=== PATIENT | male | born 1965 | race African-American/Black ===

== ENCOUNTER 2016-08-18 15:10 | Observation (INO) | payer BC ==
[~2016-08-18] VITALS: Ht 180.3 cm; Wt 85.0 kg
[~2016-08-18 15:10] MED LIST: LORT7.5T3 PO; PRED20 PO; Z.0.NO CURRENT MEDS
[2016-08-18 15:12] VITALS: BP 203/112; PULSE 82; RESP 20; TEMP 97.3; O2SAT 100
[2016-08-18 15:23] VITALS: BP 196/119; PULSE 81; RESP 18; TEMP 98.2; O2SAT 100
[2016-08-18] MEDS ORDERED: LABETALOL HCL 100 MG/20 ML VIAL IV PUSH ONE (16:00)
--- NOTE | 2016-08-18 16:10 | PD ---
HPI Chief Complaint: Syncope/Near-Syncope Time Seen by Provider: 15:23 Travel History International Travel<30 days: No Contact w/Intl Traveler<30days: No Traveled to known affect area: No History of Present Illness HPI Is a 50-year-old man who presents to the emergency department complaining of feeling poorly for the past week or so, with decreased energy, sluggishness. He started getting more weak and fatigued and having near syncopal episodes. During this time his had persistent pain in the left side of his neck and the pain radiates into the left arm. Describes left arm having cold and numb feelings off and on. He's also clamminess in both hands. He had a little bit of slight chest pressure couple days ago, but nothing more recently. Review systems also positive for some intermittent blurry vision. History Past Medical History Medical History: Denies Significant Hx Tetanus Vaccination: Unknown Past Surgical History Surgical History: No Previous Surgery Social History Alcohol Use: No Tobacco Use: No Allergies-Medications (Allergen,Severity, Reaction): Coded Allergies: No Known Allergies (Verified , 08/18/16) Reported Meds & Prescriptions Reported Meds & Active Scripts Active No Active Prescriptions or Reported Medications Review of Systems Except as stated in HPI: all other systems reviewed are Neg Physical Exam Narrative GENERAL: 50-year-old man, generally well-appearing, nontoxic. SKIN: Focused skin assessment warm/dry. HEAD: Atraumatic. Normocephalic. EYES: Pupils equal and round. No scleral icterus. No injection or drainage. ENT: No nasal bleeding or discharge. Mucous membranes pink and moist. NECK: Trachea midline. No meningismus. CARDIOVASCULAR: Regular rate and rhythm. No murmur appreciated. Maybe a little bit of pulse asymmetry in the left arm, difficult to tell for sure. RESPIRATORY: No accessory muscle use. Clear to auscultation. Breath sounds equal bilaterally. GASTROINTESTINAL: Abdomen soft, non-tender, nondistended. Hepatic and splenic margins not palpable. MUSCULOSKELETAL: No obvious deformities. No clubbing. No cyanosis. No edema. NEUROLOGICAL: Awake and alert. No obvious cranial nerve deficits. Motor grossly within normal limits. Normal speech. PSYCHIATRIC: Appropriate mood and affect; insight and judgment normal. Data Data Last Documented VS Vital Signs Date Time Temp Pulse Resp B/P Pulse Ox O2 Delivery O2 Flow Rate FiO2 08/18/16 15:23 98.2 81 18 196/119 100 08/18/16 15:12 Room Air Orders Electrocardiogram (08/18/16 ) Complete Blood Count With Diff (08/18/16 15:59) Comprehensive Metabolic Panel (08/18/16 15:59) Troponin I (08/18/16 15:59) Chest, Single Ap (08/18/16 ) Urinalysis - C+S If Indicated (08/18/16 15:59) Cta Thor Abd Aorta W Iv C W3d (08/18/16 ) Labetalol Inj (Trandate Inj) (08/18/16 16:00) Morphine Inj (Morphine Inj) (08/18/16 18:15) Acetaminophen (Tylenol) (08/18/16 18:15) Iohexol 350 Inj (Omnipaque 350 Inj) (08/18/16 18:27) Amlodipine (Norvasc) (08/18/16 19:00) Labs Laboratory Tests Test 08/18/16 08/18/16 16:10 17:00 White Blood Count 5.8 TH/MM3 Red Blood Count 5.21 MIL/MM3 Hemoglobin 14.5 GM/DL Hematocrit 45.7 % Mean Corpuscular Volume 87.7 FL Mean Corpuscular Hemoglobin 27.9 PG Mean Corpuscular Hemoglobin 31.8 % Concent Red Cell Distribution Width 13.6 % Platelet Count 176 TH/MM3 Mean Platelet Volume 9.6 FL Neutrophils (%) (Auto) 46.6 % Lymphocytes (%) (Auto) 40.1 % Monocytes (%) (Auto) 10.6 % Eosinophils (%) (Auto) 2.1 % Basophils (%) (Auto) 0.6 % Neutrophils # (Auto) 2.7 TH/MM3 Lymphocytes # (Auto) 2.3 TH/MM3 Monocytes # (Auto) 0.6 TH/MM3 Eosinophils # (Auto) 0.1 TH/MM3 Basophils # (Auto) 0.0 TH/MM3 CBC Comment DIFF FINAL Differential Comment Sodium Level 140 MEQ/L Potassium Level 3.5 MEQ/L Chloride Level 104 MEQ/L Carbon Dioxide Level 26.9 MEQ/L Anion Gap 9 MEQ/L Blood Urea Nitrogen 13 MG/DL Creatinine 1.37 MG/DL Estimat Glomerular Filtration 66 ML/MIN Rate Random Glucose 118 MG/DL Calcium Level 8.9 MG/DL Total Bilirubin 0.3 MG/DL Aspartate Amino Transf 15 U/L (AST/SGOT) Alanine Aminotransferase 27 U/L (ALT/SGPT) Alkaline Phosphatase 69 U/L Troponin I LESS THAN 0.02 NG/ML Total Protein 8.1 GM/DL Albumin 4.1 GM/DL Urine Color YELLOW Urine Turbidity CLEAR Urine pH 6.0 Urine Specific [place] 1.025 Urine Protein NEG mg/dL Urine Glucose (UA) NEG mg/dL Urine Ketones NEG mg/dL Urine Occult Blood NEG Urine Nitrite NEG Urine Bilirubin NEG Urine Urobilinogen LESS THAN 2.0 MG/DL Urine Leukocyte Esterase NEG Urine RBC 1 /hpf Urine WBC 1 /hpf Urine Squamous Epithelial <1 /hpf Cells Urine Mucus FEW /lpf Microscopic Urinalysis Comment CULT NOT INDICATED MDM Medical Decision Making Medical Screen Exam Complete: Yes Emergency Medical Condition: Yes Interpretation(s) Normal sinus rhythm at a rate of 77, anteroseptal Q waves, could suggest previous septal [place], no definite evidence of acute ischemia. LABS: CBC unremarkable. Remarkable for mildly elevated creatinine. Troponin negative. Coags unremarkable. 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 Otherwise a thoracic abdominal pelvic vasculature is all normal in caliber without aneurysmal disease or dissection. 1.8 cm nonspecific nodule in the right lobe of the thyroid. Consider ultrasound of the thyroid is not outpatient. Chest x-ray: Negative. Differential Diagnosis Dissection, ACS, renal failure, infection, bleed, other Narrative Course Medical decision making INITIAL: 50-year-old male who presents complaining of feeling generally poorly decreased energy, dizziness, concerning for left-sided anterior pain, pain in the left arm with described intermittent cold and numb feelings, and some blurry vision. Blood pressure is markedly elevated. This could be concerning for dissection. Gen. Symptoms could also be related to more generalized process such as renal failure or infection. I don't see any meningismus of a concerning for meningitis. We'll check labs, chest x-ray, EKG. We'll get CTA rule out dissection, check labs for kidney function, flexion, reassess. We'll give labetalol for blood pressure control initially. FINAL: 50-year-old man, unusual symptoms including headache, left arm pain numbness, left shoulder pain, and some intermittent chest pain. Etiology is unclear. Concern for an anginal equivalent versus symptomatic hypertension/ hypertensive urgency. Blood pressures controlled now. We'll start on by mouth amlodipine. We'll plan on admission for serial cardiac enzymes, blood pressure monitoring, possible provocative testing. Diagnosis Primary Impression: Chest pain Additional Impression: Elevated blood pressure reading Scripts No Active Prescriptions or Reported Meds Damon Mckeon MD Aug 18, 2016 16:10
[2016-08-18 16:24] LABS: AUTOMATED NEUTROPHIL # 2.7 TH/MM3 (1.8-7.7); BASOPHIL % 0.6 % (0.0-2.0); EOSINOPHIL # 0.1 TH/MM3 (0-0.4); EOSINOPHIL % 2.1 % (0.0-4.0); HEMATOCRIT 45.7 % (39.0-51.0); HEMO FLAGS DIFF FINAL; LYMPH % 40.1 % (9.0-44.0); LYMPHOCYTE # 2.3 TH/MM3 (1.0-4.8); MEAN CELL VOLUME 87.7 FL (80.0-100.0); MEAN CORPUSCULAR HEMOGLOBIN 27.9 PG (27.0-34.0); MEAN CORPUSCULAR HGB CONC 31.8 % (32.0-36.0); MONO % 10.6 % (0.0-8.0); NEUT % 46.6 % (16.0-70.0); PLATELET COUNT 176 TH/MM3 (150-450); RED BLOOD COUNT 5.21 MIL/MM3 (4.50-5.90); RED CELL DISTRIBUTION WIDTH 13.6 % (11.6-17.2); WHITE BLOOD COUNT 5.8 TH/MM3 (4.0-11.0)
--- NOTE | 2016-08-18 16:40 | RADRPT ---
EXAM DATE/TIME: 08/18/2016 16:10 [facility] COMPARISON: No previous studies available for comparison. INDICATIONS : Chest pain MEDICAL HISTORY : None. SURGICAL HISTORY : None. ENCOUNTER: Initial ACUITY: 1 week PAIN SCORE: 5/10 LOCATION: Bilateral chest FINDINGS: The lungs are clear without infiltrate, nodule, or mass. There is no appreciable pleural effusion fo r technique. Heart and mediastinum are unremarkable. IMPRESSION: No acute cardiopulmonary disease. Muriel Rascon MD on August 18, 2016 at 16:38 Board Certified Radiologist. This report was verified electronically.
[2016-08-18 16:43] LABS: ALKALINE PHOSPHATASE 69 U/L (45-117); TOTAL BILIRUBIN ADULT 0.3 MG/DL (0.2-1.0)
[2016-08-18 16:53] LABS: ALT (GPT) 27 U/L (12-78); ANION GAP 9 MEQ/L (5-15); AST (GOT) 15 U/L (15-37); BICARBONATE 26.9 MEQ/L (21.0-32.0); BLOOD UREA NITROGEN 13 MG/DL (7-18); CHLORIDE 104 MEQ/L (98-107); GLOMERULAR FILTRATION RATE 66 ML/MIN (>89); POTASSIUM 3.5 MEQ/L (3.5-5.1); SODIUM (NA) 140 MEQ/L (136-145)
[2016-08-18 17:26] LABS: BLOOD, URINE NEG (NEG); COMMENT (UR) CULT NOT INDICATED; CULTURE IF INDICATED CULT NOT INDICATED; GLUCOSE,URINE NEG (NEG); KETONE, URINE NEG (NEG); MUCUS URINE FEW /lpf (OCC); NITRITE,URINE NEG (NEG); SQUAMOUS EPITHELIAL CELL URINE <1 /hpf (0-5); URINE COLOR YELLOW (YELLW/STRAW)
--- NOTE | 2016-08-18 18:05 | EKG ---
Date Performed: 08/18/2016 Time Performed: 15:36:39 PTAGE: 50 years EKG: Sinus rhythm SEPTAL MYOCARDIAL INFARCTION ABNORMAL ECG NO SIGNIFICANT CHANGE FROM PRIOR ELECTROCARDIOGRAM. PREVIOUS TRACING : 08/18/2016 15.35 DOCTOR: Erik Travis Interpretating Date/Time 08/20/2016 07:26:27
[2016-08-18] MEDS ORDERED: ACETAMINOPHEN 325 MG TAB PO ONE (18:15)
[2016-08-18] MEDS ORDERED: MORPHINE SULFATE 4 MG/ML INJ IV PUSH ONE (18:15)
--- NOTE | 2016-08-18 18:21 | RADRPT ---
EXAM DATE/TIME: 08/18/2016 17:15 [facility] COMPARISON: No previous studies available for comparison. INDICATIONS : Left side jaw pain and left side chest pain for one week IV CONTRAST: 99 cc Omnipaque 350 (iohexol) IV RADIATION DOSE: 7.90 CTDIvol (mGy) MEDICAL HISTORY : Hypertension. SURGICAL HISTORY : None. ENCOUNTER: Initial ACUITY: 1 week PAIN SCALE: 8/10 LOCATION: Left chest TECHNIQUE: Volumetric scanning was performed using a multi-row detector CT scanner. The data was post processed with a variety of visualization algorithms including full volume maximum intensity projection, multi -planar sliding thin slab reformation, curved planar reformation, and surface rendering techniques. Using automated exposure control and adjustment of the mA and/or kV according to patient size, radiat ion dose was kept as low as reasonably achievable to obtain optimal diagnostic quality images. FINDINGS: LUNGS: There is no consolidation or pneumothorax. No concerning pulmonary nodule is visualized. No pleural fluid is present. MEDIASTINUM: No abnormally enlarged lymph nodes by CT criteria. No axillary or hilar abnormalities are identified. Isolated, 1.8 cm low density nodule in the posterior midpole of the right lobe of the thyroid ABDOMEN: The liver and spleen are free of focal defects. The gallbladder and pancreas demonstrate no abnormali ty. The adrenal glands are normal. The kidneys demonstrate no evidence of solid renal mass or hydrone phrosis. No free fluid or abdominal masses are identified. No para-aortic adenopathy is seen. PELVIS: No evidence of free fluid or pelvic mass. No abnormally enlarged inguinal or retroperitoneal lymph no santiago are present. The bladder is unremarkable. THORACIC AORTA: The thoracic aortic root is normal with normal branching of the great vessels. There is no evidence of aneurysm or dissection. ABDOMINAL AORTA: The aorta is normal in caliber without aneurysm or dissection. The renal arteries are patent bilater ally. The proximal celiac and superior mesenteric arteries are patent and normal in diameter. Also noted is an anatomic variant with a replaced hepatic artery emanating from the SMA. PELVIC VESSELS: The internal iliac and external iliac vessels are patent without aneurysm or stenosis. CONCLUSION: 1. Anatomic variant with the hepatic artery emanating as the first branch of the SMA. 2. Otherwise, the thoracic, abdominal and pelvic vasculature is all normal in caliber without aneurys mal disease or dissection. 3. 1.8 cm nonspecific nodule in the right lobe of the thyroid. It is a clinical concern, ultrasound o f the thyroid on an outpatient basis could be obtained for further characterization. Tadeo Esquivel MD on August 18, 2016 at 18:15 Board Certified Radiologist. This report was verified electronically.
[2016-08-18] MEDS ORDERED: IOHEXOL 350 MG/ML 10 ML VIAL (for RAD DIAG) IV ONE (18:27)
[2016-08-18] MEDS ORDERED: amLODIPine BESYLATE 5 MG TAB PO ONE (19:00)
[2016-08-18] MEDS ORDERED: ENOXAPARIN SODIUM 40 MG/0.4 ML SYRINGE SQ SCH (20:45)
[2016-08-18] MEDS ORDERED: SODIUM CHLORIDE 0.9% FLUSH 10 ML FLUSH IV FLUSH PRN (20:45)
[2016-08-18] MEDS ORDERED: NALOXONE HCL 0.4 MG/ML AMP IV PRN (20:45)
[2016-08-18] MEDS ORDERED: ONDANSETRON HCL 4 MG/2 ML VIAL IVP PRN (20:45)
[2016-08-18] MEDS ORDERED: ACETAMINOPHEN 325 MG TAB PO PRN (20:45)
[2016-08-18 21:06] VITALS: BP 163/104; PULSE 71; RESP 18; O2SAT 99
[2016-08-18] MEDS: ENALAPRILAT 1.25 MG/ML VIAL IV PRN (21:16)
[2016-08-18] MEDS: SODIUM CHLORIDE 0.9% FLUSH 10 ML FLUSH IV FLUSH SCH (21:16)
[2016-08-18] MEDS: SODIUM CHLOR 0.9% 1000 ML INJ 1,000 ML IV SCH (21:17)
[2016-08-18] MEDS: NITROGLYCERIN 2% OINT 1 GM PACKET TOPICAL SCH (21:17)
[2016-08-18 22:27] VITALS: BP 162/101; PULSE 67; RESP 16; O2SAT 100
[2016-08-19] VITALS (11 sets, daily range): BP systolic 133–173; BP diastolic 87–109; PULSE 72–83; RESP 14–18; TEMP 98.2–98.7; O2SAT 98–100
[2016-08-19] MEDS: NITROGLYCERIN 2% OINT 1 GM PACKET TOPICAL SCH ×2 (00:28→05:50)
[2016-08-19 03:23] LABS: AUTOMATED NEUTROPHIL # 2.8 TH/MM3 (1.8-7.7); BASOPHIL % 0.4 % (0.0-2.0); EOSINOPHIL # 0.1 TH/MM3 (0-0.4); EOSINOPHIL % 2.2 % (0.0-4.0); HEMATOCRIT 40.8 % (39.0-51.0); HEMO FLAGS DIFF FINAL; LYMPH % 33.6 % (9.0-44.0); LYMPHOCYTE # 1.7 TH/MM3 (1.0-4.8); MEAN CELL VOLUME 86.6 FL (80.0-100.0); MEAN CORPUSCULAR HEMOGLOBIN 29.1 PG (27.0-34.0); MEAN CORPUSCULAR HGB CONC 33.5 % (32.0-36.0); MONO % 8.9 % (0.0-8.0); NEUT % 54.9 % (16.0-70.0); PLATELET COUNT 169 TH/MM3 (150-450); RED BLOOD COUNT 4.72 MIL/MM3 (4.50-5.90); RED CELL DISTRIBUTION WIDTH 13.4 % (11.6-17.2); WHITE BLOOD COUNT 5.1 TH/MM3 (4.0-11.0)
[2016-08-19 03:39] LABS: ANION GAP 5 MEQ/L (5-15); AST (GOT) 11 U/L (15-37); BICARBONATE 30.9 MEQ/L (21.0-32.0); BLOOD UREA NITROGEN 11 MG/DL (7-18); CHLORIDE 107 MEQ/L (98-107); GLOMERULAR FILTRATION RATE 71 ML/MIN (>89); POTASSIUM 3.3 MEQ/L (3.5-5.1); SODIUM (NA) 143 MEQ/L (136-145)
[2016-08-19 03:42] LABS: ALKALINE PHOSPHATASE 67 U/L (45-117); ALT (GPT) 23 U/L (12-78); TOTAL BILIRUBIN ADULT 0.1 MG/DL (0.2-1.0)
[2016-08-19] MEDS: SODIUM CHLOR 0.9% 1000 ML INJ 1,000 ML IV SCH (05:53)
--- NOTE | 2016-08-19 07:42 | EKG ---
Date Performed: 08/19/2016 Time Performed: 02:10:26 PTAGE: 50 years EKG: Sinus rhythm WITH FIRST DEGREE AV BLOCK SEPTAL MYOCARDIAL INFARCTION ABNORMAL ECG NO SIGNIFICANT CHANGE FROM PRIO R ELECTROCARDIOGRAM. PREVIOUS TRACING : 08/18/2016 15.36 DOCTOR: Erik Travis Interpretating Date/Time 08/19/2016 07:40:26
[2016-08-19] MEDS: POTASSIUM CHLORIDE 10 MEQ CONTROLLED RELEASE TAB PO SCH ×2 (09:00→10:50)
[2016-08-19] MEDS ORDERED: amLODIPine BESYLATE 5 MG TAB PO SCH (09:00)
[2016-08-19] MEDS: SODIUM CHLORIDE 0.9% FLUSH 10 ML FLUSH IV FLUSH SCH (09:00)
[2016-08-19] MEDS ORDERED: REGADENOSON INJ 0.4 MG/5 ML SYR ONE (09:28)
--- NOTE | 2016-08-19 10:45 | MH ---
cc: LUIZA LOPEZ MD DATE OF ADMISSION: 08/18/2016 DATE OF : 1965 CHIEF COMPLAINT Dizziness with near syncope and left-sided chest pain. No travel in the last 30 days. HISTORY OF PRESENT ILLNESS This is a pleasant 50-year-old black male who has been in his usual state of health up until the past couple of weeks. 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 He also notes some numbness and radiation into his left arm. The patient also complained of some left jaw and ear pressure. He denies any fever, no cough. No shortness of breath. He has not been sick or taken any antibiotics recently. He is positive for some intermittent blurry vision. The patient initiated symptoms at work; the work nurse took his blood pressure and noticed it to be extremely high and send him home from work. He has not been following with a routine PCP but had a visit this coming up week scheduled. The patient had some of the same symptoms approximately 4 years ago had some cardiac testing which was within normal range. She states he was given of blood pressure pills during that period of time but states the medicine making feel bad, so he did not take it. He has not been on any routine blood pressure medicines since that time medical history of previous chest pain with a negative exam previous hypertension, untreated. No previous surgeries. ALLERGIES No known. MEDICATIONS: No active medications. SOCIAL HISTORY The patient is , currently lives with his . He denies any alcohol or tobacco or illicit drug use. 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 REVIEW OF SYSTEMS 12-point review was done positives include left general left ear pressure left-sided chest pain with radiation into the left arm numbness and tingling some mild dizziness off and on other systems negative or unremarkable vital signs temperature is 98 for pulse 80, respirations 18, blood pressure 133/87, O2 sat 98 on room air. PHYSICAL EXAMINATION IN GENERAL: Well-nourished, well-developed black male looks to be his stated age alert and oriented, resting in the bed a good historian. SKIN: Skin is pink mucous membranes warm and dry. HEAD, EYES, EARS, NOSE, AND THROAT: Atraumatic, normocephalic. Pupils equal, reactive to light and accommodation. No scleral icterus. [place] moist mucous membranes. NECK: Neck is supple. CARDIOVASCULAR SYSTEM: S1-S2 distant heart sounds but no murmurs, rubs or gallops. No edema in his lower extremities. RESPIRATORY: Essentially clear anteriorly and posteriorly with no wheezes, rales or rhonchi. GASTROINTESTINAL: Abdomen soft, nontender, nondistended. Active bowel sounds in all four quads. MUSCULOSKELETAL: He moves his extremities with purpose. He has equal crew scheduler. No edema. NEUROLOGIC: He is alert, oriented x4 and good historian. Speech is clear psychiatric appropriate mood and affect. Insight and judgment normal. DIAGNOSTIC DATA White blood cell 5.1, RBC 4.72, hemoglobin 13.7, hematocrit 40.8, platelet count 169, elevated monocyte percentage auto 8.9. Chemistry 143, potassium 3.3, chloride 107, carbon dioxide 30.9, amnion gap 5, BUN 11, creatinine 1.29, GFR 71, random glucose 126. AST 11, ALT 23, alkaline phos 67. Troponins are negative x3 at less than 0.02, total protein 6.9, albumin 3.5. TSH is pending. Urine is yellow clear, pH is six, specific gravity 1.025, negative protein, glucose ketones, occult blood, nitrites and bilirubin negative leukocyte esterase. Culture is not indicated. DIAGNOSTIC DATA Chest x-ray and aortic CTA; anatomic variant with hepatic artery emanating as the first branch of the SMA, otherwise thoracic abdominal and pelvic vasculature are normal without aneurysm or dissection. A 1.8 cm nonspecific nodule in the right lobe of the thyroid. Follow up on an outpatient basis could be obtained for further characterization. ASSESSMENT/PLAN 1. Chest pain. Rule out myocardial infarction, hypertension uncontrolled. 2. New thyroid nodule seen on aortic CTA, intermittent blurry vision. 3. Hypokalemia. PLAN: Plan is to admit for observation. Vital signs will be q. four. Activity; bed rest. ECG cardiac monitoring. Heart healthy diet. Medications have been reconciled the. In the emergency room the patient was given 20 mg IV push of labetalol x1. This brought his pressure into the controlled range. The patient was also given p.o. Norvasc, DVT prophylaxis with ordered with Lovenox. Gentle hydration was also used. Currently the patient will have a p.r.n. Vasotec with parameters if his BP becomes uncontrolled cardiology has been consulted for their expert opinion and has seen the patient this morning myocardial perfusion stress test has been ordered currently the patient will be n.p.o. except for his medications until this test is completed. For the hypokalemia. Mild the patient was given p.o. potassium and we will recheck his labs in the morning for his further evaluation. The patient is full code, full aggressive care and we will follow. Thank you very much. DICTATED BY: CHRISTINE Yang MD [employer] Irving/ludin /8:52 AM /9:05 AM
--- NOTE | 2016-08-19 10:57 | MB ---
cc: BOBBY JOSUE MD DATE OF CONSULTATION 08/19/2016 REASON FOR CONSULTATION Chest pain HISTORY OF PRESENT ILLNESS The patient is a 50-year-old man who has a fairly unremarkable past medical history. He reports that over the last week or so, he has had some decreased energy. He reports to me that he has been having intermittent episodes of chest pain and neck pain that he insists is related to his blood pressure. He, however, does not have a blood pressure machine at home. The patient has not elicited any precipitating or relieving factors to the chest pain. He reports that the neck pain, when he was having it, was tender to touch however, it is not any longer. The patient reported some left chest pain and said that it was not really related to exertion, however on several occasions, he thought it may be. He is somewhat of a poor historian in this regard. He notes he was admitted to [facility] several years ago for the same thing and was not aware of any diagnosis subsequent. PAST MEDICAL HISTORY Significant for low back pain. ALLERGIES NO KNOWN DRUG ALLERGIES. OUTPATIENT MEDICATIONS None SOCIAL HISTORY The patient is and does not smoke. REVIEW OF SYSTEMS Except as mentioned in the HPI, all 12 systems are negative. PHYSICAL EXAMINATION Initial blood pressure was 197/119, current blood pressure is 136/87, respiratory rate 14, heart rate 80 and temperature of 98.4. GENERAL: He is a well-appearing man who is in no apparent distress. NECK: His neck is free from JVD. LUNGS: The lungs are bilaterally clear to auscultation. CARDIOVASCULAR: On examination, he has a normal S1 and S2. I do not appreciate any murmurs, rubs or gallops. ABDOMEN: The abdomen is soft. EXTREMITIES: The extremities are free from edema. EKG shows normal sinus rhythm with a borderline first-degree AV block. There is septal Q-waves with poor R-wave progression concerning for an anteroseptal SC age indeterminate. LAB VALUES Significant for serial troponins of less than 0.02/less than 0.02/less than 0.02. His initial creatinine was 1.37 and that is down to 1.29 today. IMPRESSIONS 1. Atypical chest pain - The patient does not really have any cardiac risk factors other than being a middle-aged male. His pain is quite atypical. His EKG, however does show some possible evidence for an old anteroseptal SC. In light of this, I am going to check a [place] nuclear stress. 2. Hypertension - The patient was fairly hypertensive on Arrival. At this point, they have placed him on amlodipine which does appear reasonable. 3. Fatigue - I am going to add a TSH. DISPOSITION It is reasonable for him to be discharged home if the study is nonischemic. Bobby Josue M.D. TESSA/DJL /7:59 AM /10:49 AM
--- NOTE | 2016-08-19 11:38 | RADRPT ---
EXAM DATE/TIME: 08/19/2016 09:08 [facility] COMPARISON: No previous studies available for comparison. INDICATIONS : Chest pressure radiating to left neck and arm for 1 day. Abnormal EKG. Angina. DOSE: 26.2 mCi Tc99m Myoview at stress. 8.1 mCi Tc99m Myoview at rest. 0.4 mg Lexiscan STRESS SYMPTOMS: Short of breath. EJECTION FRACTION: 67% MEDICAL HISTORY : Hypertension. Thyroid disease. Syncopal episode. SURGICAL HISTORY : None. ENCOUNTER: Initial ACUITY: 1 day PAIN SCALE: 2/10 LOCATION: Bilateral chest TECHNIQUE: The patient underwent pharmacologic stress with infusion of prescribed dose. Continuous ECG tracing was monitored during stress. Gated SPECT imaging was performed after stress and conventional SPECT i maging was performed at rest. The examination was performed on a SPECT/CT scanner, both attenuation and non-corrected datasets were reviewed. FINDINGS: DISTRIBUTION: The maximum perfused segment at stress is in the septal wall. PERFUSION STUDY: The pattern of perfusion at stress is within normal limits, with regional variations of perfusion wit hin 25%. The pattern of perfusion at stress and rest is unchanged. No evidence of redistribution. The summed stress score is zero. GATED STUDY: There is intact wall motion and thickening without hypokinetic or dyskinetic segments. CONCLUSION: 1. No evidence of stress-induced ischemia. 2. Intact wall motion was 67% ejection fraction. RISK CATEGORY: Low (<1% Annual Mortality Rate) Douglas Mace MD on August 19, 2016 at 11:35 Board Certified Radiologist. This report was verified electronically.
[2016-08-19] MEDS: ENALAPRILAT 1.25 MG/ML VIAL IV PRN (13:24)
[2016-08-19] MEDS ORDERED: NIFEdipine 60 MG SUSTAINED RELEASE TAB PO SCH (14:30)
--- NOTE | 2016-08-19 14:57 | HP.UPD ---
H&P Update Note This is a very pleasant 50-year-old male of Dr. Dr. Zavala. He came to the emergency department with left neck pain and left upper extremity pain. He was seen by chief innovation officer Dr. Mcdonald. His nuclear stress test was done and was negative. His blood pressure has been elevated. He has had elevated blood pressure of 1 number of years however he does not take any medications. He did try 1 time Procardia which did not suit him. He did take today amlodipine without any side effects. This controlled his blood pressure well. Also his creatinine was slightly elevated at 1.36. This improved with hydration. His blood sugar this morning was 136 however it was not a true fasting blood sugar. 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 He does not have any chest pain. He is now being discharged home in stable condition. He is to take amlodipine 10 mg daily and baby aspirin daily. His potassium was low at 3.3 and he was started on supplemental potassium. He started avoid excessive salt and limit his alcohol intake to a maximum of 1 alcoholic drink a day. He is recommended to see his primary physician in the next few days to try to get his blood pressure control and also to check his fasting blood sugar. He also needs a periodic evaluation of his creatinine. Cathie Kaur MD Aug 19, 2016 14:54
[2016-08-19] MEDS ORDERED: AMLO10TA2 PO (15:01)
[2016-08-19] MEDS ORDERED: POTA-243 PO (15:01)
[2016-08-19] MEDS ORDERED: ASPI81TA11 PO (15:01)
--- NOTE | 2016-08-19 15:01 | HHI.DS ---
Discharge Summary Admission Date Aug 18, 2016 at 19:46 Admitting Diagnosis Chest pain, hypertension CBC/BMP: 08/19/16 0259 08/19/16 0259 Significant Findings Laboratory Tests Test 08/18/16 08/18/16 08/18/16 08/19/16 16:10 17:00 21:35 02:59 Mean Corpuscular Hemoglobin 31.8 % Concent (32.0-36.0) Monocytes (%) (Auto) 10.6 % 8.9 % (0.0-8.0) (0.0-8.0) Creatinine 1.37 MG/DL (0.60-1.30) Estimat Glomerular Filtration 66 ML/MIN (>89) 71 ML/MIN (>89) Rate Random Glucose 118 MG/DL 126 MG/DL (74-106) (74-106) Troponin I LESS THAN 0.02 LESS THAN 0.02 LESS THAN 0.02 NG/ML NG/ML NG/ML (0.02-0.05) (0.02-0.05) (0.02-0.05) Urine Mucus FEW /lpf (OCC) Potassium Level 3.3 MEQ/L (3.5-5.1) Total Bilirubin 0.1 MG/DL (0.2-1.0) Aspartate Amino Transf 11 U/L (15-37) (AST/SGOT) Hospital Course This is a very pleasant 50-year-old male of Dr. Dr. Zavala. He came to the emergency department with left neck pain and left upper extremity pain. He was seen by property and equipment clerk Dr. Mcdonald. His nuclear stress test was done and was negative. His blood pressure has been elevated. He has had elevated blood pressure of 1 number of years however he does not take any medications. He did try 1 time Procardia which did not suit him. He did take today amlodipine without any side effects. This controlled his blood pressure well. Also his creatinine was slightly elevated at 1.36. This improved with hydration. His blood sugar this morning was 136 however it was not a true fasting blood sugar. 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 He does not have any chest pain. He is now being discharged home in stable condition. He is to take amlodipine 10 mg daily and baby aspirin daily. His potassium was low at 3.3 and he was started on supplemental potassium. He started avoid excessive salt and limit his alcohol intake to a maximum of 1 alcoholic drink a day. He is recommended to see his primary physician in the next few days to try to get his blood pressure control and also to check his fasting blood sugar. He also needs a periodic evaluation of his creatinine Discharge Disposition: Discharge Home Discharge Instructions DIET: Follow Instructions for: Heart Healthy Diet Additional Diet Instructions: Low-salt, Low-calorie Activities you can perform: Regular-No Restrictions Additional Activity Instructio: Maximum 1 alcoholic drink a day Cathie Kaur MD Aug 19, 2016 15:01
[2016-08-19 18:06] LABS: HEMOGLOBIN A1a 1.1 %; HEMOGLOBIN A1b 1.7 %; HEMOGLOBIN Ao 84.7 %; HEMOGLOBIN P3 3.7 %
[2016-08-20] MEDS ORDERED: amLODIPine BESYLATE 5 MG TAB PO SCH (09:00)
== END 2016-08-19 17:16 | disposition home or self-care (01) ==
LOC: NEPC 15:10 → NEDA 19:46 → NEPFCDU 08-19 00:47
PROVIDERS: ADMIT Specialist; ATTEND Specialist
DX: R07.89 Other chest pain (principal); I10 Essential (primary) hypertension; R53.83 Other fatigue; E04.1 Nontoxic single thyroid nodule; H53.8 Other visual disturbances; E87.6 Hypokalemia
CPT/HCPCS: 71010; 71275; 74174; 78452; 80048; 80053; 80076; 81001; 83036; 84443; 84484; 85025; 93005; 93017; 96374; 99285; A9502; G0378; J1650; J2785; J7030; Q9967